=== PATIENT | male | born 1995 | race Two or more races ===

== ENCOUNTER 2023-12-22 11:15 | Emergency (ER) | payer OTHER ==
[~2023-12-22] VITALS: Ht 180.3 cm; Wt 111.9 kg
[2023-12-22 11:52] VITALS: BP 154/96; TEMP 97.5
[2023-12-22 12:18] VITALS: PULSE 103; RESP 16; O2SAT 96
[2023-12-22 13:17] LABS: Hepatitis B Surface Antibody Negative (Negative); Hepatitis B Surface Antigen Negative (Negative)
== END 2023-12-22 13:18 | disposition home or self-care (01) ==
LOC: ER 11:15
DX: S69.90XA Unspecified injury of unspecified wrist, hand and finger(s), initial encounter (principal); T80.211A Bloodstream infection due to central venous catheter, initial encounter; Z79.899 Other long term (current) drug therapy; Z20.6 Contact with and (suspected) exposure to human immunodeficiency virus [HIV]; W46.0XXA Contact with hypodermic needle, initial encounter; Y93.89 Activity, other specified; Y92.89 Other specified places as the place of occurrence of the external cause; Y99.8 Other external cause status
CPT/HCPCS: 36415; 86703; 86706; 86803; 87340